=== PATIENT | female | born 1945 | race Caucasian/White ===

== ENCOUNTER → 2016-12-19 | Outpatient (CLI) | payer MEDICARE | END | disposition home or self-care (01) | LOC: CFH 09:43 | PROVIDERS: ATTEND Licensed Practical Nurse | DX: Z12.31 Encounter for screening mammogram for malignant neoplasm of breast (principal); M85.88 Other specified disorders of bone density and structure, other site; N95.8 Other specified menopausal and perimenopausal disorders | CPT/HCPCS: 77080; G0202 ==

== ENCOUNTER 2018-08-27 06:58 | Outpatient (CLI) | payer MEDICARE | END 2018-08-27 23:59 | disposition home or self-care (01) | LOC: CVU 06:58 → EDSTATUS 07:00 → CVU 23:59 | PROVIDERS: ATTEND Internal Medicine Cardiovascular Disease | DX: I08.0 Rheumatic disorders of both mitral and aortic valves (principal) | CPT/HCPCS: 93306 ==

== ENCOUNTER 2019-03-03 10:34 | Outpatient (CLI) | payer MEDICARE | END 2019-03-03 23:59 | disposition home or self-care (01) | LOC: CFH 10:34 | PROVIDERS: ATTEND Family Medicine | DX: M81.0 Age-related osteoporosis without current pathological fracture (principal) | CPT/HCPCS: 77080 ==

== ENCOUNTER 2019-07-03 16:16 | Emergency (ER) | payer MEDICARE ==
[~2019-07-03] VITALS: Ht 167.6 cm; Wt 63.0 kg
--- NOTE | 2019-07-03 16:26 | NUR ---
CAROLE. REPORT RECEIVED FROM EMS. SENT FROM . PT WENT TO D/T PALPITATION TODAY. PT HAD SVT RATE 170-180 NEUROPSYCHIATRIC AIDE. 6MG ADENOSIN GIVEN NEUROPSYCHIATRIC AIDE THEN SINUS TACHY RATE 100'S NOW. DENIES CP/PALPITATION AT THIS TIME. PT'S AOX4. RESPS EVEN AND UNLABORED. ALL MONITORS IN PLACE. CALL LIGHT WITHIN REACH.
[2019-07-03] MEDS ORDERED: METOPROLOL TARTRATE 25 MG TABLET ONE (16:46)
--- NOTE | 2019-07-03 16:49 | NUR ---
PT MEDICATED PER EMAR. PT TOLERATED WELL. PT'S AOX4. RESPS EVEN AND UNLABORED.
[2019-07-03 16:58] LABS: BASOPHILS # (AUTO) 0.01 x10^3/uL (0-0.1); BASOPHILS % (AUTO) 0 % (0-1); EOSINOPHILS % (AUTO) 2 % (1-7); LYMPHOCYTES # (AUTO) 0.89 x10^3/uL (1-3.4); LYMPHOCYTES % (AUTO) 13 % (22-44); MD NO; MEAN CORPUSCULAR HEMOGLOBIN 32.6 pg (27.0-34.8); MEAN CORPUSCULAR HGB CONC 33.5 g/dL (32.4-35.8); MEAN CORPUSCULAR VOLUME 97.2 fL (80-100); MEAN PLATELET VOLUME 7.8 fL (7.4-10.4); MONOCYTES # (AUTO) 0.47 x10^3/uL (0.2-0.8); MONOCYTES % (AUTO) 7 % (2-9); NEUTROPHILS % (AUTO) 78 % (42-75); PLATELET COUNT 334 x10^3/uL (130-400); RED BLOOD COUNT 4.26 x10^6/uL (3.82-5.3); RED CELL DISTRIBUTION WIDTH 13.6 % (9.6-15.2)
[2019-07-03] MEDS ORDERED: METOPROLOL TARTRATE 25 MG TABLET PO ONE (17:00)
[2019-07-03 17:09] LABS: ANION GAP 6 mmol/L (5-15); CALCIUM 8.7 mg/dL (8.5-10.1); CHLORIDE 100 mmol/L (98-107); CREATININE 0.84 mg/dL (0.55-1.02)
[2019-07-03 17:13] LABS: TROPONIN I 0.047 ng/mL (0.000-0.045)
--- NOTE | 2019-07-03 17:28 | NUR ---
PT RESTING IN [facility]. PT'S AOX4. RESPS EVEN AND UNLABORED. ALL MONITORS IN PLACE. CALL LIGHT WITHIN REACH.
--- NOTE | 2019-07-03 18:13 | NUR ---
PT STILL RESTING IN [facility]. PT'S AOX4. RESPS EVEN AND UNLABORED. ALL MONITORS IN PLACE. CALL LIGHT WITHIN REACH. AWATING DISPO.
--- NOTE | 2019-07-03 19:00 | NUR ---
REPORT FROM HARLEEN WHITE
--- NOTE | 2019-07-03 19:01 | NUR ---
REPORT GIVEN TO EDY WHITE.
[2019-07-03 19:09] VITALS: BP 156/88
== END 2019-07-03 19:20 | disposition home or self-care (01) ==
LOC: ED 19:02
DX: I47.1 Supraventricular tachycardia (principal)
CPT/HCPCS: 36415; 71045; 80048; 83735; 84443; 84484; 85025; 93005; 99284

== ENCOUNTER 2019-09-01 09:28 | Day surgery (SDC) | payer MEDICARE ==
[~2019-09-01] VITALS: Ht 167.6 cm; Wt 61.8 kg
[~2019-09-01 09:28] MED LIST: NITROGLYCERIN 5 MG/ML, 10ML ONE
[2019-09-01 09:57] VITALS: BP 131/68
[2019-09-01] MEDS ORDERED: METO25TA91 PO (10:23)
[2019-09-01] MEDS ORDERED: LOVA20TA2 PO (10:23)
[2019-09-01] MEDS ORDERED: LAMO25TA9 PO ×2 (10:23)
[2019-09-01] MEDS ORDERED: LOSA25TA25 PO (10:23)
[2019-09-01] MEDS ORDERED: Vitamin B12 PO (10:27)
[2019-09-01] MEDS ORDERED: PANT40TA5 PO (10:27)
[2019-09-01] MEDS ORDERED: CHOL10003 PO (10:27)
[2019-09-01] MEDS ORDERED: Areds2 PO (10:27)
[2019-09-01] MEDS ORDERED: FLUT9.9S INH (10:27)
[2019-09-01] MEDS ORDERED: FEXO180T15 PO (10:27)
[2019-09-01 10:29] LABS: BASOPHILS # (AUTO) 0.03 x10^3/uL (0-0.1); BASOPHILS % (AUTO) 1 % (0-1); EOSINOPHILS # (AUTO) 0.03 x10^3/uL (0-0.4); EOSINOPHILS % (AUTO) 1 % (1-7); LYMPHOCYTES # (AUTO) 0.95 x10^3/uL (1-3.4); LYMPHOCYTES % (AUTO) 19 % (22-44); MD NO; MEAN CORPUSCULAR VOLUME 94.2 fL (80-100); MEAN PLATELET VOLUME 7.5 fL (7.4-10.4); MONOCYTES # (AUTO) 0.55 x10^3/uL (0.2-0.8); MONOCYTES % (AUTO) 11 % (2-9); NEUTROPHILS # (AUTO) 3.42 x10^3/uL (1.8-6.8); NEUTROPHILS % (AUTO) 69 % (42-75); PLATELET COUNT 328 x10^3/uL (130-400); RED BLOOD COUNT 4.52 x10^6/uL (3.82-5.3); RED CELL DISTRIBUTION WIDTH 13.3 % (9.6-15.2)
[2019-09-01 10:36] LABS: ANION GAP 8 mmol/L (5-15); CALCIUM 9.3 mg/dL (8.5-10.1); CHLORIDE 99 mmol/L (98-107); CREATININE 0.79 mg/dL (0.55-1.02)
[2019-09-01] MEDS ORDERED: MIDAZOLAM 1 MG/ML, 5ML ONE (11:02)
[2019-09-01] MEDS ORDERED: FENTANYL PF 100 MCG/2ML ONE (11:02)
[2019-09-01] MEDS ORDERED: TICAGRELOR 90 MG TABLET ONE (11:02)
[2019-09-01] MEDS ORDERED: VERAPAMIL 2.5 MG/ML, 2ML ONE (11:02)
[2019-09-01] MEDS ORDERED: LIDOCAINE-MPF 1%, 5ML ONE (11:03)
[2019-09-01] MEDS ORDERED: HEPARIN 1,000 UNITS/ML, 10ML ONE (11:03)
[2019-09-01] MEDS ORDERED: BIVALIRUDIN 250 MG ONE (11:03)
[2019-09-01] MEDS ORDERED: SODIUM CHLORIDE 0.9% 1,000 ML IV SCH (11:51)
== END 2019-09-01 14:22 | disposition home or self-care (01) ==
LOC: CACL 09:28
PROVIDERS: ATTEND Internal Medicine Cardiovascular Disease
DX: R07.89 Other chest pain (principal); I35.0 Nonrheumatic aortic (valve) stenosis; I44.7 Left bundle-branch block, unspecified; I10 Essential (primary) hypertension; E78.49 Other hyperlipidemia; K21.9 Gastro-esophageal reflux disease without esophagitis; I47.1 Supraventricular tachycardia; E66.3 Overweight; Z79.899 Other long term (current) drug therapy; Z68.23 Body mass index [BMI] 23.0-23.9, adult
CPT/HCPCS: 36415; 80048; 85025; 93454; 99156; C1769; C1894; J1644; J2250; J3010; Q9967; J0583

== ENCOUNTER → 2019-09-14 | Outpatient (CLI) | payer MEDICARE ==
[~2019-09-14] MED LIST changes: +Areds2 PO; +CHOL10003 PO; +FEXO180T15 PO; +FLUT9.9S INH; +LAMO25TA9 PO; +LOSA25TA25 PO; +LOVA20TA2 PO; +METO25TA91 PO; -NITROGLYCERIN 5 MG/ML, 10ML ONE; +PANT40TA5 PO; +VISIPAQUE 320 MG/ML, 150ML BOTTLE ONE; +Vitamin B12 PO
== END | disposition home or self-care (01) ==
LOC: CVU 09:33
PROVIDERS: ATTEND Internal Medicine Cardiovascular Disease
DX: I65.21 Occlusion and stenosis of right carotid artery (principal); I35.0 Nonrheumatic aortic (valve) stenosis; I11.9 Hypertensive heart disease without heart failure; R91.8 Other nonspecific abnormal finding of lung field; J98.11 Atelectasis; K44.9 Diaphragmatic hernia without obstruction or gangrene; M85.88 Other specified disorders of bone density and structure, other site; D18.09 Hemangioma of other sites; I70.0 Atherosclerosis of aorta
CPT/HCPCS: 71275; 74174; 93880; 94010; 94726; 94729; Q9967

== ENCOUNTER 2020-02-15 06:58 | Outpatient (CLI) | payer MEDICARE ==
[~2020-02-15 06:58] MED LIST changes: +ASPI81TA45 PO; +CLOP75TA PO; -PANT40TA5 PO; +PANT40TA6 PO; -VISIPAQUE 320 MG/ML, 150ML BOTTLE ONE
== END 2020-02-15 23:59 | disposition home or self-care (01) ==
LOC: CFH 06:58
PROVIDERS: ATTEND Family Medicine
DX: N63.20 Unspecified lump in the left breast, unspecified quadrant (principal)
CPT/HCPCS: 77065

== ENCOUNTER → 2020-09-14 | Outpatient (CLI) | payer MEDICARE | END | disposition home or self-care (01) | LOC: CFH 12:40 | PROVIDERS: ATTEND Family Medicine | DX: N64.4 Mastodynia (principal) | CPT/HCPCS: 76642; 77061; 77065; G0279 ==

== ENCOUNTER → 2020-12-13 | Outpatient (CLI) | payer MEDICARE | END | disposition home or self-care (01) | LOC: CFH 13:49 | PROVIDERS: ATTEND Licensed Practical Nurse | DX: R91.8 Other nonspecific abnormal finding of lung field (principal); J84.10 Pulmonary fibrosis, unspecified | CPT/HCPCS: 71250 ==

== ENCOUNTER 2021-02-23 19:53 | Emergency (ER) | payer MEDICARE ==
[~2021-02-23] VITALS: Ht 170.2 cm; Wt 62.8 kg
--- NOTE | 2021-02-23 20:30 | NUR ---
PT PRESENTS TO THE ER WITH NEIGHBOR AT BEDSIDE, PT STATES HER BLOOD PRESSURE WAS HIGH TODAY AT HOME, PT STATES SHE WAS FEELING "OFF" TODAY, PT TAKES METOPROLOL, PT NOT COMPLAINING OF N/V, NO DIZZINESS OR LIGHT HEADEDNESS, AT BEDSIDE TO DISCUSS POC
[2021-02-23 21:17] LABS: BASOPHILS % (AUTO) 1 % (0-1); EOSINOPHILS % (AUTO) 0 % (1-7); LYMPHOCYTES % (AUTO) 16 % (22-44); MEAN CORPUSCULAR HEMOGLOBIN 31.8 pg (27.0-34.8); MEAN CORPUSCULAR HGB CONC 34.4 g/dL (32.4-35.8); MEAN PLATELET VOLUME 7.4 fL (7.4-10.4); MONOCYTES % (AUTO) 13 % (2-9); NEUTROPHILS % (AUTO) 70 % (42-75); PLATELET COUNT 330 x10^3/uL (130-400); RED BLOOD COUNT 4.19 x10^6/uL (3.82-5.3); RED CELL DISTRIBUTION WIDTH 13.3 % (9.6-15.2)
[2021-02-23 21:26] LABS: ALBUMIN 3.6 g/dL (3.4-5.0); ANION GAP 11 mmol/L (5-15); CALCIUM 9.2 mg/dL (8.5-10.1); CHLORIDE 95 mmol/L (98-107); CREATININE 0.58 mg/dL (0.55-1.02)
[2021-02-23 21:30] LABS: TROPONIN I < 0.015 ng/mL (0.000-0.045)
[2021-02-23 21:57] VITALS: BP 180/60
== END 2021-02-23 21:59 | disposition home or self-care (01) ==
LOC: ED 21:16
DX: I10 Essential (primary) hypertension (principal); F41.1 Generalized anxiety disorder; E87.1 Hypo-osmolality and hyponatremia; I44.7 Left bundle-branch block, unspecified; I47.1 Supraventricular tachycardia
CPT/HCPCS: 36415; 80048; 82040; 84484; 85025; 93005; 99284